=== PATIENT | male | born 1985 | race Two or more races ===

== ENCOUNTER 2019-09-15 11:49 | Emergency (ER) | payer OTHER, SELFPAY ==
[~2019-09-15] VITALS: Ht 180.3 cm; Wt 91.0 kg
--- NOTE | 2019-09-15 12:06 | NUR ---
PT PRESENTED TO ED D/T A BRICK FALLING ON PT'S HEAD AT WORK. PT STATES WAS ONTOP OF A LADDER WHEN BRICK FELL ON HEAD. PT DENIES LOC. PT A&OX4. PT STATES 7/10 PAIN AT THIS TIME. NOTICEABLE LOSS OF BLOOD ON PATIENTS SHIRT AND HAT. ADDITIONAL GAUZES PROVIDED TO PT. PT ALSO STATES BRICK HIT RIGHT SHOULDER. RN NOTICED SWELLING AND BRUISING TO AREA. ERMD AT BEDSIDE EVALUATING PT.
[2019-09-15] MEDS ORDERED: HYDROcodone/APAP 5/325 TABLET ONE ×2 (12:13→14:19)
[2019-09-15] MEDS ORDERED: HYDROcodone/APAP 5/325 TABLET PO ONE ×2 (12:30→14:00)
--- NOTE | 2019-09-15 12:38 | NUR ---
PT TRANSPORTED TO RADIOLOGY VIA GURNEY.
--- NOTE | 2019-09-15 13:16 | NUR ---
PT RETURNED FROM RADIOLOGY. PT STATES HAVING 8/10 HEAD PAIN AT THIS TIME AFTER ADMINISTRATION OF NORCO PER EMAR. RN TO INFORM MD. PT'S FAMILY MEMBER AT BEDSIDE. TECH TO CLEAN HEAD. RN TO CONTINUE TO MONITOR.
--- NOTE | 2019-09-15 13:42 | NUR ---
PT RESTING ON GURNEY. MOTHER AT BEDSIDE. AWAITING CT SCAN BEFORE TECH IS ABLE TO CLEAN HEAD FOR EXAMINATION.
--- NOTE | 2019-09-15 14:21 | NUR ---
PT RETURNED FROM CT SCAN. PT STATES 7/10 HEAD AND RIGHT SHOULDER PAIN AT THIS TIME. RN TO ADMINISTER SECOND DOSE OF PAIN MEDICATION PER EMAR.
[2019-09-15 14:22] VITALS: BP 137/92
--- NOTE | 2019-09-15 14:28 | NUR ---
RN PROVIDED PT WITH AN ICE PACK PER ERMD ORDERS.
--- NOTE | 2019-09-15 15:02 | NUR ---
TECH AT BEDSIDE IRRIGATING WOUND.
--- NOTE | 2019-09-15 15:27 | NUR ---
PT AMBULATED TO RESTROOM WITH A STEADY GAIT.
--- NOTE | 2019-09-15 15:35 | NUR ---
ERMD AT BEDSIDE.
[2019-09-15] MEDS ORDERED: LIDOCAINE-MPF 1%, 5ML INFIL ONE (16:00)
[2019-09-15] MEDS ORDERED: LIDOCAINE-MPF 1%, 5ML ONE (16:20)
--- NOTE | 2019-09-15 16:23 | NUR ---
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
--- NOTE | 2019-09-15 16:52 | NUR ---
PATIENT DISCHARGED HOME IN A STABLE CONDITION. DC INSTRUCTIONS WERE DISCUSSED WITH PT. PT VERBALIZED UNDERSTANDING. NO FURTHER QUESTIONS OR CONCERNS WERE EXPRESSED AT THAT TIME. PT AMBULATED TO DC DESK WITH RN WITH A STEADY GAIT.
== END 2019-09-15 16:54 | disposition home or self-care (01) ==
LOC: ED 16:45
DX: S06.0X0A Concussion without loss of consciousness, initial encounter (principal); S01.01XA Laceration without foreign body of scalp, initial encounter; S40.011A Contusion of right shoulder, initial encounter; W18.30XA Fall on same level, unspecified, initial encounter; Y93.89 Activity, other specified; Y92.69 Other specified industrial and construction area as the place of occurrence of the external cause; Y99.9 Unspecified external cause status
CPT/HCPCS: 12032; 70450; 99284

== ENCOUNTER 2020-07-24 12:19 | Emergency (ER) | payer SELFPAY ==
[~2020-07-24] VITALS: Ht 180.3 cm; Wt 92.9 kg
[2020-07-24 12:35] VITALS: BP 128/84
[2020-07-24 14:01] LABS: BASOPHILS % (AUTO) 1 % (0-1); EOSINOPHILS % (AUTO) 4 % (1-7); LYMPHOCYTES % (AUTO) 16 % (22-44); MEAN CORPUSCULAR HEMOGLOBIN 29.8 pg (27.5-34.5); MEAN CORPUSCULAR HGB CONC 34.2 g/dL (33.2-36.2); MEAN PLATELET VOLUME 8.2 fL (7.4-10.4); MONOCYTES % (AUTO) 12 % (2-9); NEUTROPHILS % (AUTO) 68 % (42-75); PLATELET COUNT 298 x10^3/uL (130-400); RED BLOOD COUNT 5.53 x10^6/uL (4.38-5.82); RED CELL DISTRIBUTION WIDTH 12.8 % (9.4-14.8)
[2020-07-24 14:03] LABS: ALBUMIN 3.8 g/dL (3.4-5.0); ANION GAP 3 mmol/L (5-15); CALCIUM 9.5 mg/dL (8.5-10.1); CHLORIDE 103 mmol/L (98-107)
[2020-07-24 14:05] LABS: MD NO
[2020-07-24 14:06] LABS: ALANINE AMINOTRANSFERASE 57 U/L (12-78); ALKALINE PHOSPHATASE 96 U/L (45-117); BILIRUBIN,TOTAL 0.6 mg/dL (0.2-1.0); CREATININE 1.04 mg/dL (0.7-1.3); TOTAL PROTEIN 8.5 g/dL (6.4-8.2)
--- NOTE | 2020-07-24 14:06 | NUR ---
PT RESTING IN GURSALEM, MONITORING IN PLACE, AQUILES AT THIS TIME, RADHA. PT'S MOM AT BEDSIDE.
== END 2020-07-24 15:57 | disposition home or self-care (01) ==
LOC: ED 13:53
DX: G89.29 Other chronic pain (principal); M54.5 Low back pain; M25.572 Pain in left ankle and joints of left foot; K02.9 Dental caries, unspecified
CPT/HCPCS: 36415; 72110; 80053; 84550; 85025; 99285